=== PATIENT | female | born 1975 | race Caucasian/White ===

== ENCOUNTER 2017-10-12 08:44 | Outpatient (CLI) | payer BC ==
--- NOTE | 2017-10-12 14:48 | Mammography Report ---
Bilateral mammogram: No previous studies available. CAD study utilized. Findings: Heterogeneous breast parenchyma bilaterally. A focal dense asymmetry outer made and in the mid right breast stenosis. Focal circumscribed dense asymmetry made right breast and anterior to mid right breast on MLO view. Focal circumscribed dense asymmetry mid left breast Left nipple on MLO view. No microcalcification. Normal axilla. Impression: Circumscribed densities right and left breast. Recommend spot mag and sonographic examination. BI-RADS CATEGORY: 0 = Needs additional imaging evaluation ACR BI-RADS MAMMOGRAPHIC CODES: 0 = Needs additional imaging evaluation; 1 = Negative; 2 = Benign; 3 = Probably benign; 4 = Suspicious; 5 = Malignant; 6 = Known biopsy-proven malignancy COMMENT: 1. Dense breast tissue, i.e., adenosis, fibrocystic changes, etc., may obscure an underlying neoplasm. 2. Approximately 10% of cancers are not detected with mammography. 3. A negative mammography report should not delay biopsy if a clinically suspicious mass is present. COMMENT: Patient follow-up letters are generated in [employer].
== END 2017-10-12 08:45 | disposition home or self-care (01) ==
LOC: MAMMO 08:44
PROVIDERS: ATTEND Family Medicine Adult Medicine
DX: Z12.31 Encounter for screening mammogram for malignant neoplasm of breast (principal)
CPT/HCPCS: 77067

== ENCOUNTER 2017-10-29 08:33 | Outpatient (CLI) | payer BC ==
--- NOTE | 2017-10-29 11:06 | Ultrasound Report ---
BILATERAL DIGITAL DIAGNOSTIC MAMMOGRAM with CAD and BILATERAL BREAST ULTRASOUND: 10/29/17 CLINICAL: Recalled for bilateral asymmetries. COMPARISON:10/12/17 screening mammogram. FINDINGS: Bilateral spot magnification views were performed and demonstrate persistent bilateral retroareolar partially circumscribed asymmetries. Ultrasound of the right breast (including all four quadrants and the retroareolar area) was performed and demonstrated numerous small subcentimeter benign cysts and no solid mass. Ultrasound of left breast (including all four quadrants and the retroareolar area) was performed and demonstrated several benign subcentimeter cysts and no solid mass. IMPRESSION: Bilateral benign cysts. BI-RADS CATEGORY: 2 -- Benign RECOMMENDATION: Routine mammographic screening in one year. ACR BI-RADS MAMMOGRAPHIC CODES: 0 = Needs additional imaging evaluation; 1 = Negative; 2 = Benign; 3 = Probably benign; 4 = Suspicious; 5 = Malignant; 6 = Known biopsy-proven malignancy COMMENT: 1. Dense breast tissue, i.e., adenosis, fibrocystic changes, etc., may obscure an underlying neoplasm. 2. Approximately 10% of cancers are not detected with mammography. 3. A negative mammography report should not delay biopsy if a clinically suspicious mass is present. COMMENT: Patient follow-up letters are generated by our [employer] application.
== END 2017-10-29 08:34 | disposition home or self-care (01) ==
LOC: SPVWC 08:33
PROVIDERS: ATTEND Family Medicine Adult Medicine
DX: N60.02 Solitary cyst of left breast (principal); N60.01 Solitary cyst of right breast; R92.8 Other abnormal and inconclusive findings on diagnostic imaging of breast
CPT/HCPCS: 77066